=== PATIENT | male | born 1990 | race African-American/Black ===

== ENCOUNTER 2020-03-27 05:37 | Emergency (ER) | payer OTHER ==
[~2020-03-27] VITALS: Ht 165.1 cm; Wt 81.6 kg
[2020-03-27 05:40] VITALS: BP 146/87
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
--- NOTE | 2020-03-27 05:58 | NUR ---
ED Nurse Note:pt went down to CT via w/c accompanied by CT staff pt in stable condition.
--- NOTE | 2020-03-27 06:11 | NUR ---
ED Nurse Note: pt back from CT in stable condition.
[2020-03-27] MEDS ORDERED: Acetaminophen 500mg (ES) tab ORAL ONE (07:00)
--- NOTE | 2020-03-27 07:11 | NUR ---
HAND-OFF: Report given to AREN Maciel.
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
[2020-03-27] MEDS ORDERED: IBUPROFEN400 M1 PO (07:24)
[2020-03-27] MEDS ORDERED: ACETAMINOPHEN500 M3 ORAL (07:24)
[2020-03-27 07:36] VITALS: BP 138/82
--- NOTE | 2020-03-27 07:36 | NUR ---
ER DISCHARGE NOTE: Patient is cleared to be discharged per ERMD, pt is aox4, on room air, with stable vital signs. pt was given dc and prescription instructions, pt was able to verbalize understanding, pt id band removed. pt is able to ambulate with steady gait. pt took all belongings.
== END 2020-03-27 07:36 | disposition home or self-care (01) ==
LOC: EDBD 05:37 → EMR 05:47
DX: S02.2XXA Fracture of nasal bones, initial encounter for closed fracture (principal); S02.5XXA Fracture of tooth (traumatic), initial encounter for closed fracture; S01.81XA Laceration without foreign body of other part of head, initial encounter; Y00.XXXA Assault by blunt object, initial encounter; Y93.9 Activity, unspecified; Y92.9 Unspecified place or not applicable; Z88.0 Allergy status to penicillin; Z72.89 Other problems related to lifestyle
CPT/HCPCS: 70486; Z7502; 99284